=== PATIENT | female | born 1980 | race Caucasian/White ===

== ENCOUNTER 2017-07-22 23:03 | Emergency (ER) ==
[2017-07-22 23:10] VITALS: BP 153/97; TEMP 98.5; BMI 36.8
--- NOTE | 2017-07-22 23:18 | ED.PDOC ---
General ED Provider: Dr. IMELDA BUENO-ER Chief Complaint: Rash Stated Complaint: pardeep got poison alana Time Seen by Physician: 23:15 Mode of Arrival: Walk-In Information Source: Patient Exam Limitations: No limitations [facility] and Triage Documentation Reviewed and Agree: Yes Skin Complaint Exam - Skin Rash/Itching Complaint/Exam Onset/Duration: several hours Symptoms Are: Still present Initial Severity: Mild Current Severity: Moderate Location: neck and arms Potential Exposures: Reports: Plants Aggravating: Reports: None Alleviating: Reports: None Associated Signs and Symptoms: Denies: Difficulty breathing, Fever, Chills Related History: Similar episode Skin Findings: Present: Dry scaly skin Differential Diagnoses: Contact Dermatitis, Poison Alana/Jamul Review of Systems - Review Of Systems Constitutional: Reports: No symptoms Eyes: Reports: No symptoms Ears, Nose, Mouth, Throat: Reports: No symptoms Respiratory: Reports: No symptoms Cardiac: Reports: No symptoms GI: Reports: No symptoms : Reports: No symptoms Musculoskeletal: Reports: No symptoms Skin: Reports: Rash Neurological: Reports: No symptoms Endocrine: Reports: No symptoms Hematologic/Lymphatic: Reports: No symptoms All Other Systems: Reviewed and Negative Past Medical History - Past Medical History Previously Healthy: Yes Endocrine: Reports: None Cardiovascular: Reports: Hypertension Respiratory: Reports: None Hematological: Reports: None Gastrointestinal: Reports: None Genitourinary: Reports: None Neuro/Psych: Reports: None Musculoskeletal: Reports: Back Pain Cancer: Reports: None Last Menstrual Period: 2 weeks ago Other Pertinent Past Medical History: CHRONIC BACK PAIN - Surgical History General Surgical History: Reports: Tubal ligation, (x2), Cholecystectomy, Other ( right groin abscess b) - Family History Family History: Reports: None - Social History Smoking Status: Never smoker Hx Substance Use: No Alcohol Screening: None Lives: With family - Immunizations Tetanus Shot up to Date: Yes Physical Exam - Physical Exam Appearance: Well-appearing, No pain distress, Well-nourished Eyes: BETO, EOMI, Conjunctiva clear ENT: Ears normal, Nose normal, Oropharynx normal Neck: Supple Respiratory: Airway patent, Breath sounds clear, Breath sounds equal, Respirations nonlabored Cardiovascular: RRR, Pulses normal, No rub, No murmur GI/: Soft, Nontender, No masses, Bowel sounds normal, No Organomegaly Musculoskeletal: Normal strength, ROM intact, No edema, No calf tenderness Skin: Warm, Dry, Normal color (noted dry erythematous rash over neck and arms) Neurological: Sensation intact Psychiatric: Affect appropriate, Mood appropriate Critical Care Note - Critical Care Note Total Time (mins): 0 Course - Course Orders, Labs, Meds: Orders Category Date Time Status Dexamethasone 4 mg/ml Inj [Decadron 4 mg/ml Sdv] MEDS 07/22/17 23:14 Discontinued 8 mg IM ONCE STA Diphenhydramine Inj [Benadryl] MEDS 07/22/17 23:14 Discontinued 50 mg IM ONCE STA Medications Discontinued Medications Generic Name Dose Route Start Last Admin Trade Name Freq PRN Reason Stop Dose Admin Dexamethasone Sodium Phosphate 8 mg 07/22/17 23:14 Decadron 4 Mg/Ml Sdv IM 07/22/17 23:15 ONCE STA Diphenhydramine HCl 50 mg 07/22/17 23:14 Benadryl IM 07/22/17 23:15 ONCE STA Vital Signs: Temp Pulse Resp BP Pulse Ox 07/22/17 23:04 98.5 F 98 H 20 153/97 H 96 Departure - Departure Time of Disposition: 23:18 Disposition: HOME SELF-CARE Discharge Problem: Contact dermatitis Qualifiers: Contact dermatitis type: irritant Contact dermatitis trigger: non-food plants Qualified Code(s): L24.7 - Irritant contact dermatitis due to plants, except food Instructions: Contact Dermatitis (ED), Poison Alana (ED) Condition: Good Pt referred to PMD for follow-up: Yes Additional Instructions: prednisone 30mg x 2 days--then 20mgx 2 days then 10mgx 2 days then 5mg x 2 days--lidex ointment apply bid in a thin layer--do not apply to the face Allergies/Adverse Reactions: Allergies Penicillins Adverse Reaction (Verified 07/22/17 23:09) Sulfa (Sulfonamide Antibiotics) Adverse Reaction (Verified 07/22/17 23:09) Home Medications: Ambulatory Orders Hydrocodone/Acetaminophen [Sanford 5-325 Tablet] 1 each PO BID 09/01/16 Disposition Discussed With: Patient
[2017-07-22] MEDS: BENADRYL IM STA (23:24)
[2017-07-22] MEDS: DECADRON 4 MG/ML SDV IM STA (23:25)
== END 2017-07-22 23:35 | disposition home or self-care (01) ==
LOC: ED 23:03
DX: L24.7 Irritant contact dermatitis due to plants, except food (principal)
CPT/HCPCS: 96372; 99282

== ENCOUNTER 2018-11-25 21:56 | Emergency (ER) ==
[2018-11-25 22:09] VITALS: BMI 38.0
--- NOTE | 2018-11-25 22:39 | ED.PDOC ---
General ED Provider: Dr. RADHA LOPEZ Chief Complaint: Fever Stated Complaint: painfull right EAC without auricular cellulitis.Redness and inflammation of canal waals.CXan see unperforated drum.Pain. Time Seen by Physician: 01:19 Mode of Arrival: Walk-In Information Source: Patient Exam Limitations: No limitations Primary Care Provider: KATHYA ROWLEY Referred to ED by: Other Seen Within Last 72 Hours for Same Complaint By: ED Nursing and Triage Documentation Reviewed and Agree: Yes Does patient meet sepsis criteria?: Yes If yes, has appropriate treatment been initiated?: No System Inflammatory Response Syndrome: Not Applicable Sepsis Protocol: For patient's 13 years and over: Temp is 96.8 and below OR 101 and greater Pulse >90 BPM Resp >20/minute Acutely Altered Mental Status Are patient's symptoms suggestive of a new infection, such as: -Pneumonia -Skin, Soft Tissue -Endocarditis -UTI -Bone, Joint Infection -Implantable Device -Acute Abdominal Infection -Wound Infection -Meningitis -Blood Stream Catheter Infection -Unknown EENT Complaint Exam - Ear Complaint/Exam Onset/Duration: today suddenm onmset patient reporting Symptoms Are: Still present Timing: Constant Initial Severity: Severe Current Severity: Moderate Character: Reports: Aching pain Aggravating: Reports: Tugging on ear, Movement Alleviating: Reports: Antipyretics, OTC Meds Associated Signs and Symptoms: Reports: Hearing loss, Pain to external face Ear Surgical History: None Vesicles to External Pinna: No Vesicles to Tragus: No TMJ Tenderness: None Mastoid Tenderness: None Tragal Tenderness: None External Canal: Erythema, Tenderness Tympanic Membrane: Erythema, Dullness Differential Diagnoses: Cellulitis, Otitis Externa, Otitis Media, Serous Otitis , Abrasion Review of Systems - Review Of Systems Constitutional: Reports: Other Eyes: Reports: No symptoms Ears, Nose, Mouth, Throat: Reports: Ear pain Respiratory: Reports: No symptoms Cardiac: Reports: No symptoms GI: Reports: No symptoms : Reports: No symptoms Musculoskeletal: Reports: No symptoms Skin: Reports: No symptoms Neurological: Reports: No symptoms Endocrine: Reports: No symptoms Hematologic/Lymphatic: Reports: No symptoms All Other Systems: Reviewed and Negative Past Medical History - Past Medical History Previously Healthy: Yes Endocrine: Reports: None Cardiovascular: Reports: Hypertension Respiratory: Reports: None Hematological: Reports: None Gastrointestinal: Reports: None Genitourinary: Reports: None Neuro/Psych: Reports: None Musculoskeletal: Reports: Back Pain Cancer: Reports: None Last Menstrual Period: LAST WEEK Other Pertinent Past Medical History: CHRONIC BACK PAIN - Surgical History General Surgical History: Reports: Tubal ligation, (x2), Cholecystectomy, Other ( right groin abscess b) - Family History Family History: Reports: None - Social History Smoking Status: Never smoker Hx Substance Use: No Alcohol Screening: None - Immunizations Tetanus Shot up to Date: Yes Physical Exam - Physical Exam Appearance: Ill-appearing Ill-appearing: Mild Pain Distress: Moderate Eyes: BETO ENT: Nose normal, Oropharynx normal, Erythema Neck: Supple Respiratory: Airway patent Cardiovascular: RRR GI/: Soft Musculoskeletal: Normal strength Neurological: Sensation intact Re-Evaluation - Re-Evaluation Time of Re-Evaluation: 00:19 Status: Improved Vital Signs Stable: Yes Pain Level: diminished Appearance: NAD Lungs: Other Skin: Warm and Dry Neuro: Alert and Oriented X3 CV: RRR Critical Care Note - Critical Care Note Total Time (mins): 0 Course - Course Hematology/Chemistry: 11/25/18 22:56 Orders, Labs, Meds: Orders Category Date Time Status EKG-(ED ONLY) Stat CARDIO 11/25/18 22:20 Ordered Vital Signs: Temp Pulse Resp BP Pulse Ox 11/25/18 21:58 98.9 F 103 H 20 136/52 L 95 Departure - Departure Time of Disposition: 01:01 Disposition: HOME SELF-CARE Discharge Problem: Otitis media Instructions: Iron Deficiency Anemia (ED) Condition: Good Pt referred to PMD for follow-up: Yes IPMP verified?: No Additional Instructions: Take Azithromycin 500 mg PO daily x 7 days.This is to cover for otitis media especially that you are allergic tyo penicillins and poss sulfa.Follow with PCP if not better within 72 hhours and seek ENT doctor revaluation,Take a flu vaccine if you did not so far,For anemia start iron tablets as prescribed,Use sparingly uour pain killer meds foe breakthrough earache only and remember 72 hours reeval if not better. Allergies/Adverse Reactions: Allergies Penicillins Adverse Reaction (Verified 11/25/18 22:08) Sulfa (Sulfonamide Antibiotics) Adverse Reaction (Verified 11/25/18 22:08) Home Medications: Ambulatory Orders Lisinopril [Zestril] 10 mg PO DAILY 11/25/18 Disposition Discussed With: Patient, Family
[2018-11-25] MEDS ORDERED: SODIUM CHLORIDE 1,000 ML IV STA (22:46)
[2018-11-25] MEDS ORDERED: MORPHINE 4 MG/ML SYRINGE IVP STA ×2 (22:47→23:45)
[2018-11-25] MEDS ORDERED: ROCEPHIN 1 GM in SODIUM CHLORIDE 50 ML IV STA (22:50)
[2018-11-25] MEDS ORDERED: FLOXIN 0.3% OTIC SOL OT STA (22:58)
[2018-11-25] MEDS ORDERED: ROCEPHIN ONE (23:01)
[2018-11-25] MEDS ORDERED: CIPRODEX OTIC SUSPENSION OT ONE (23:27)
[2018-11-25] MEDS ORDERED: CIPRODEX OTIC SUSPENSION OT SCH (23:30)
[2018-11-25] MEDS ORDERED: MORPHINE 2 MG/ML SYRINGE IVP STA (23:46)
[2018-11-25] MEDS ORDERED: ZITHROMAX PO STA (23:46)
[2018-11-26] MEDS ORDERED: ALBUTEROL 0.083% NEB NEB STA (00:17)
--- NOTE | 2018-11-26 00:38 | DI ---
EXAM: Two-view chest HISTORY: Cough fever COMPARISON: Two-view chest 09/15/2016 FINDINGS: The cardiomediastinal silhouette is stable. There is an azygos lobe. There is no evidenc e of infiltrate or effusion. No osseous abnormalities are identified. IMPRESSION: No evidence of active pulmonary disease or interval change
[2018-11-26 01:43] VITALS: BP 130/82; TEMP 98.6
== END 2018-11-26 01:37 | disposition home or self-care (01) ==
LOC: ED 21:56
DX: H66.90 Otitis media, unspecified, unspecified ear (principal); D64.9 Anemia, unspecified; I10 Essential (primary) hypertension
CPT/HCPCS: 36415; 85008; 85025; 93005; 93010; 94640; 96361; 96365; 96375; 99284

== ENCOUNTER 2018-12-02 21:57 | Emergency (ER) ==
[2018-12-02 22:04] VITALS: TEMP 99.2; BMI 39.8
[2018-12-02] MEDS ORDERED: LEVAQUIN PO STA (22:14)
[2018-12-02] MEDS ORDERED: DECADRON 4 MG/ML SDV IM STA (22:15)
[2018-12-02] MEDS ORDERED: TORADOL IM STA (22:15)
--- NOTE | 2018-12-02 22:51 | CT ---
EXAM: CT head without contrast. HISTORY: Headache. PROCEDURE: Contiguous axial CT images of the head without contrast with coronal and sagittal reforma ts. FINDINGS: The ventricles and basal cisterns are normal in size and configuration. No evidence of m ass or midline shift. No intracranial hemorrhage or evidence of large vessel infarct. No extra-axia l fluid collection. There is minimal mucosal thickening in the sphenoid sinus. There is opacificati on of the right mastoid air cells. The left mastoid air cells are normal in appearance. Impression: Negative CT of the head. Paranasal sinusitis and right mastoiditis.
--- NOTE | 2018-12-02 22:56 | CT ---
EXAM: CT scan sinuses HISTORY: Headache COMPARISON: CT scan sinuses 12/03/2014 FINDINGS: Contiguous axial images obtained through the sinuses without contrast utilizing 3-mm colli mation. Sagittal and coronal reconstructions were imaged and reviewed.. Minimal mucoperiosteal thick ening is seen with bilateral maxillary left frontal sinuses. Ethmoid sinuses are clear. Minimal muc operiosteal thickening seen in the bilateral sphenoid sinuses. The ostiomeatal complexes are patent. There is partial right mastoid effusion. Extensive . Periodontal disease is seen in the bilateral maxilla. IMPRESSION: Chronic-appearing sinusitis as described. Right mastoid effusion.
--- NOTE | 2018-12-02 23:30 | ED.PDOC ---
General ED Provider: Dr. IMELDA BUENO-ER Chief Complaint: Earache Stated Complaint: pardeep got sinus Time Seen by Physician: 21:55 Mode of Arrival: Walk-In Information Source: Patient Exam Limitations: Physical impairment Primary Care Provider: KATHYA ROWLEY Nursing and Triage Documentation Reviewed and Agree: Yes Does patient meet sepsis criteria?: No System Inflammatory Response Syndrome: Not Applicable Sepsis Protocol: For patient's 13 years and over: Temp is 96.8 and below OR 101 and greater Pulse >90 BPM Resp >20/minute Acutely Altered Mental Status Are patient's symptoms suggestive of a new infection, such as: -Pneumonia -Skin, Soft Tissue -Endocarditis -UTI -Bone, Joint Infection -Implantable Device -Acute Abdominal Infection -Wound Infection -Meningitis -Blood Stream Catheter Infection -Unknown EENT Complaint Exam - Ear Complaint/Exam Onset/Duration: several days Symptoms Are: Still present Timing: Constant Initial Severity: Mild Current Severity: Mild Character: Reports: Dull pain, Aching pain Aggravating: Reports: None Alleviating: Reports: None Associated Signs and Symptoms: Reports: URI symptoms Related History: Reports: Similar Episode Vesicles to External Pinna: No Vesicles to Tragus: No Tympanic Membrane: Erythema, Bulging, Dullness Differential Diagnoses: Otitis Media, URI Review of Systems - Review Of Systems Constitutional: Reports: No symptoms Eyes: Reports: No symptoms Ears, Nose, Mouth, Throat: Reports: Ear pain Respiratory: Reports: No symptoms Cardiac: Reports: No symptoms GI: Reports: No symptoms : Reports: No symptoms Musculoskeletal: Reports: No symptoms Skin: Reports: No symptoms Neurological: Reports: Headache Endocrine: Reports: No symptoms Hematologic/Lymphatic: Reports: No symptoms All Other Systems: Reviewed and Negative Past Medical History - Past Medical History Previously Healthy: Yes Endocrine: Reports: None Cardiovascular: Reports: Hypertension Respiratory: Reports: None Hematological: Reports: None Gastrointestinal: Reports: None Genitourinary: Reports: None Neuro/Psych: Reports: None Musculoskeletal: Reports: Back Pain Cancer: Reports: None Last Menstrual Period: 1.5 weeks ago Other Pertinent Past Medical History: CHRONIC BACK PAIN - Surgical History General Surgical History: Reports: Tubal ligation, (x2), Cholecystectomy, Other ( right groin abscess b) - Family History Family History: Reports: None - Social History Smoking Status: Never smoker Hx Substance Use: No Alcohol Screening: None - Immunizations Tetanus Shot up to Date: Yes Physical Exam - Physical Exam Appearance: Well-appearing, No pain distress, Well-nourished Pain Distress: Mild Eyes: BETO, EOMI, Conjunctiva clear ENT: Rhinorrhea Neck: Supple Respiratory: Airway patent Cardiovascular: RRR GI/: Soft, Nontender, No masses, Bowel sounds normal, No Organomegaly Musculoskeletal: Normal strength, ROM intact, No edema, No calf tenderness Skin: Warm, Dry, Normal color Neurological: Sensation intact, Motor intact, Reflexes intact, Cranial nerves intact, Alert, Oriented Psychiatric: Affect appropriate, Mood appropriate Interpretation - Radiology Interpretation Radiology Interpretation By: Radiologist Radiology Results: Positive Exam Interpreted: CT Scan Critical Care Note - Critical Care Note Total Time (mins): 0 Course - Course Orders, Labs, Meds: Orders Category Date Time Status Dexamethasone 4 mg/ml Inj [Decadron 4 mg/ml Sdv] MEDS 12/02/18 22:15 Discontinued 8 mg IM ONCE STA Ketorolac Tromethamine [Toradol] MEDS 12/02/18 22:15 Discontinued 60 mg IM ONCE STA Levofloxacin [Levaquin] MEDS 12/02/18 22:14 Discontinued 750 mg PO ONCE STA CT HEAD W/O CONTRAST Stat RADS 12/02/18 22:[address] SINUSES W/O CONTRAST Stat RADS 12/02/18 22:15 Completed Medications Discontinued Medications Generic Name Dose Route Start Last Admin Trade Name Freq PRN Reason Stop Dose Admin Dexamethasone Sodium Phosphate 8 mg 12/02/18 22:15 12/02/18 22:32 Decadron 4 Mg/Ml Sdv IM 12/02/18 22:16 8 mg ONCE STA Administration Ketorolac Tromethamine 60 mg 12/02/18 22:15 12/02/18 22:32 Toradol IM 12/02/18 22:16 60 mg ONCE STA Administration Levofloxacin 750 mg 12/02/18 22:14 12/02/18 22:31 Levaquin PO 12/02/18 22:15 750 mg ONCE STA Administration Vital Signs: Temp Pulse Resp BP Pulse Ox 12/02/18 21:58 99.2 F 104 H 20 155/96 H 98 Departure - Departure Time of Disposition: 23:30 Disposition: HOME SELF-CARE Discharge Problem: Sinusitis Qualifiers: Sinusitis location: unspecified location Chronicity: acute Recurrence: non- recurrent Qualified Code(s): J01.90 - Acute sinusitis, unspecified Instructions: Rhinosinusitis (ED) Condition: Good Pt referred to PMD for follow-up: Yes IPMP verified?: No Additional Instructions: levaquin 500mg #10--f/u with pcp Allergies/Adverse Reactions: Allergies Penicillins Adverse Reaction (Verified 12/02/18 22:04) Sulfa (Sulfonamide Antibiotics) Adverse Reaction (Verified 12/02/18 22:04) Difficulty Breathing Home Medications: Ambulatory Orders Lisinopril [Zestril] 10 mg PO DAILY 11/25/18 Disposition Discussed With: Patient
[2018-12-02 23:41] VITALS: BP 160/84
== END 2018-12-02 23:37 | disposition home or self-care (01) ==
LOC: ED 21:57
DX: J01.90 Acute sinusitis, unspecified (principal)
CPT/HCPCS: 96372; 99283

== ENCOUNTER 2019-02-22 16:13 | Emergency (ER) ==
[2019-02-22 16:24] VITALS: TEMP 98.6; BMI 41.5
--- NOTE | 2019-02-22 17:04 | ED.PDOC ---
General ED Provider: Dr. IMELDA DIEZ Chief Complaint: Respiratory Complaint Stated Complaint: Sore throat and Rt Sided ear ache Time Seen by Physician: 16:55 Mode of Arrival: Walk-In Information Source: Patient Exam Limitations: No limitations Primary Care Provider: KATHYA ROWLEY Nursing and Triage Documentation Reviewed and Agree: Yes Does patient meet sepsis criteria?: No If yes, has appropriate treatment been initiated?: No System Inflammatory Response Syndrome: Not Applicable Sepsis Protocol: For patient's 13 years and over: Temp is 96.8 and below OR 101 and greater Pulse >90 BPM Resp >20/minute Acutely Altered Mental Status Are patient's symptoms suggestive of a new infection, such as: -Pneumonia -Skin, Soft Tissue -Endocarditis -UTI -Bone, Joint Infection -Implantable Device -Acute Abdominal Infection -Wound Infection -Meningitis -Blood Stream Catheter Infection -Unknown Review of Systems - Review Of Systems Constitutional: Reports: Chills, Fever, Malaise, Weakness Eyes: Reports: No symptoms Ears, Nose, Mouth, Throat: Reports: Throat pain Respiratory: Reports: No symptoms Cardiac: Reports: No symptoms GI: Reports: No symptoms : Reports: No symptoms Musculoskeletal: Reports: No symptoms Skin: Reports: No symptoms Neurological: Reports: No symptoms Endocrine: Reports: No symptoms Hematologic/Lymphatic: Reports: No symptoms All Other Systems: Reviewed and Negative Past Medical History - Past Medical History Previously Healthy: Yes Endocrine: Reports: None Cardiovascular: Reports: Hypertension Respiratory: Reports: None Hematological: Reports: None Gastrointestinal: Reports: None Genitourinary: Reports: None Neuro/Psych: Reports: None Musculoskeletal: Reports: Back Pain Cancer: Reports: None Last Menstrual Period: last week Other Pertinent Past Medical History: CHRONIC BACK PAIN - Surgical History General Surgical History: Reports: Tubal ligation, (x2), Cholecystectomy, Other ( right groin abscess b) - Family History Family History: Reports: None - Social History Smoking Status: Never smoker Hx Substance Use: No Alcohol Screening: None Physical Exam - Physical Exam Appearance: Ill-appearing, Obese Ill-appearing: Moderate Pain Distress: Mild Eyes: BETO, EOMI, Conjunctiva clear ENT: Erythema, Exudate (rt tonsillar region ) Neck: Supple Respiratory: Airway patent, Breath sounds clear, Breath sounds equal, Respirations nonlabored Cardiovascular: RRR, Pulses normal, No rub, No murmur GI/: Soft, Nontender, No masses, Bowel sounds normal, No Organomegaly Musculoskeletal: Normal strength, ROM intact, No edema, No calf tenderness Skin: Warm, Dry, Normal color Neurological: Sensation intact, Motor intact, Reflexes intact, Cranial nerves intact, Alert, Oriented Psychiatric: Affect appropriate, Mood appropriate Critical Care Note - Critical Care Note Total Time (mins): 30 Course - Course Orders, Labs, Meds: Lab Review 02/22/19 17:09 Influ A Molecular Assay Negative by naat Influ B Molecular Assay Negative by naat Orders Category Date Time Status FLU A & B MOLECULAR [FLU A/B MOLECULAR] Stat LAB 02/22/19 17:09 Completed RAPID STREP SCREEN [MOLECULAR GROUP A STREP] Stat LAB 02/22/19 17:09 Completed Lisinopril [Zestril] MEDS 02/22/19 17:08 Discontinued 10 mg PO ONCE STA Medications Discontinued Medications Generic Name Dose Route Start Last Admin Trade Name Gaelq PRN Reason Stop Dose Admin Lisinopril 10 mg 02/22/19 17:08 02/22/19 17:16 Zestril PO 02/22/19 17:09 10 mg ONCE STA Administration Vital Signs: Temp Pulse Resp BP Pulse Ox 02/22/19 18:20 140/90 02/22/19 18:11 148/81 H 02/22/19 17:30 150/89 H 02/22/19 17:20 169/97 H 02/22/19 16:20 98.6 F 112 H 20 161/113 H 97 Departure - Departure Time of Disposition: 18:20 Disposition: HOME SELF-CARE Discharge Problem: Strep tonsillitis Instructions: Strep Throat (ED) Condition: Good Pt referred to PMD for follow-up: Yes (1wk) IPMP verified?: No Additional Instructions: Force fluids Take antibiotics Tylenol or advil as needed for temperature Prescriptions: Azithromycin [Zithromax] 250 mg PO DAILY #6 tablet Allergies/Adverse Reactions: Allergies Penicillins Adverse Reaction (Verified 02/22/19 16:24) Sulfa (Sulfonamide Antibiotics) Adverse Reaction (Verified 02/22/19 16:24) Difficulty Breathing Home Medications: Ambulatory Orders Lisinopril [Zestril] 10 mg PO DAILY 11/25/18 Azithromycin [Zithromax] 250 mg PO DAILY #6 tablet 02/22/19 Disposition Discussed With: Patient
[2019-02-22] MEDS ORDERED: ZESTRIL PO STA (17:08)
[2019-02-22 18:36] VITALS: BP 142/91
== END 2019-02-22 18:43 | disposition home or self-care (01) ==
LOC: ED 16:13
DX: J02.9 Acute pharyngitis, unspecified (principal); H92.01 Otalgia, right ear; R50.9 Fever, unspecified; R53.1 Weakness; R07.0 Pain in throat; J03.00 Acute streptococcal tonsillitis, unspecified
CPT/HCPCS: 87502; 87651; 99283

== ENCOUNTER 2019-02-23 15:45 | Outpatient (CLI) ==
[2019-02-22 16:24] VITALS: BMI 41.5
== END 2019-02-23 15:46 | disposition home or self-care (01) ==
LOC: RHC-LAB 15:45
PROVIDERS: ATTEND Nurse Practitioner Family
DX: D50.9 Iron deficiency anemia, unspecified (principal); I10 Essential (primary) hypertension
CPT/HCPCS: 36415; 80053; 80061; 82607; 82728; 82746; 83540; 83550; 84443; 84466; 85008; 85025; 85045

== ENCOUNTER 2019-11-12 04:46 | Observation (INO) ==
[2019-11-12] MEDS ORDERED: SODIUM CHLORIDE 1,000 ML IV STA (05:29)
[2019-11-12] MEDS ORDERED: LEVAQUIN 750 MG/150 ML D5W 750 MG/150 ML BAG IV STA (05:29)
[2019-11-12 05:48] LABS: HEMATOCRIT 28.9 % (37.0-47.0)
[2019-11-12] MEDS ORDERED: TORADOL IVP STA (05:57)
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
--- NOTE | 2019-11-12 06:43 | CT ---
EXAM: CT chest without intravenous contrast 11/12/2019. Sagittal and coronal reformatted images obt ained HISTORY: Dyspnea and tachycardia COMPARISON: 07/03/2019 FINDINGS: The heart size appears within normal limits. There is no pericardial effusion There is no pulmonary consolidation. No pleural effusion or pneumothorax. Reticulonodular infiltrate is present within the lingula. There is associated bronchial wall thicken ing. This likely represents infectious/inflammatory pneumonitis process. This can be seen on axial series image 32. Limited views of the upper abdomen shows surgical changes of cholecystectomy. No acute process. IMPRESSION: Reticulonodular infiltrate within the lingula suggestive of infectious/inflammatory pneu monitis. The lungs are otherwise well aerated. No pulmonary consolidation, effusion or pneumothorax .
[2019-11-12] MEDS ORDERED: NORCO 7.5-325 PO PRN (06:49)
[2019-11-12] MEDS ORDERED: CATAPRES PO SCH (09:00)
[2019-11-12] MEDS ORDERED: ZESTRIL PO SCH (09:00)
[2019-11-12] MEDS ORDERED: CHLORASEPTIC SPRAY MM PRN (09:39)
[2019-11-12] MEDS ORDERED: MUCINEX DM ER 600-30 MG TABLET PO SCH (10:00)
[2019-11-12] MEDS ORDERED: SODIUM CHLORIDE 500 ML IV SCH (10:00)
[2019-11-12] MEDS ORDERED: IMITREX SUBCUT STA ×2 (10:02→12:23)
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
[2019-11-12] MEDS: XOPENEX 1.25 MG NEB SCH ×3 (11:07→23:05)
[2019-11-12] MEDS ORDERED: TRANDATE IVP STA (11:15)
[2019-11-12] MEDS ORDERED: SODIUM CHLORIDE 1,000 ML IV SCH (11:30)
[2019-11-12] MEDS ORDERED: TRANDATE IVP PRN ×2 (12:39→13:00)
[2019-11-12] MEDS: LOVENOX SUBCUT SCH (12:57)
[2019-11-12] MEDS: PHENERGAN WITH CODEINE 6.25/10 MG/5 ML PO PRN ×2 (17:25→23:59)
[2019-11-12] MEDS: TORADOL IVP PRN (17:26)
[2019-11-12] MEDS: SODIUM CHLORIDE 1,000 ML IV SCH ×2 (19:39→22:42)
[2019-11-12] MEDS: MUCINEX PO SCH (20:29)
[2019-11-12] MEDS: TYLENOL PO PRN (20:32)
[2019-11-13] MEDS: TORADOL IVP PRN ×3 (00:10→18:23)
[2019-11-13] MEDS: XOPENEX 1.25 MG NEB SCH ×4 (04:40→23:15)
[2019-11-13 05:20] LABS: HEMATOCRIT 27.2 % (37.0-47.0)
[2019-11-13] MEDS: PHENERGAN WITH CODEINE 6.25/10 MG/5 ML PO PRN ×4 (05:28→22:44)
[2019-11-13] MEDS: SODIUM CHLORIDE 1,000 ML IV SCH ×2 (05:29→16:44)
[2019-11-13] MEDS ORDERED: FLUZONE HIGH-DOSE 2019-20 SYR IM ONE (09:00)
[2019-11-13] MEDS ORDERED: PNEUMOVAX 23 IM ONE (09:00)
[2019-11-13] MEDS ORDERED: LEVAQUIN 750 MG/150 ML D5W 750 MG/150 ML BAG IV SCH (09:00)
[2019-11-13] MEDS ORDERED: FLUZONE QUAD 2019-2020 SYRINGE IM ONE (09:00)
[2019-11-13] MEDS: MUCINEX PO SCH ×2 (09:28→20:43)
[2019-11-13] MEDS: TYLENOL PO PRN (09:28)
[2019-11-13] MEDS: ZESTRIL PO SCH ×2 (09:28→09:36)
[2019-11-13] MEDS: LEVAQUIN 750 MG/150 ML D5W 750 MG/150 ML BAG IV SCH (09:28)
[2019-11-13] MEDS: LOVENOX SUBCUT SCH (09:29)
--- NOTE | 2019-11-13 11:14 | PCM.PROG ---
Date Seen by Provider: 11/13/19 Time Seen by Provider: 08:07 Subjective: pt left laterally recumbent in bed. just prior to my entering room nurse reported that patient states she feels she has fever and request some water. Temp taken prior to water and is 97.9 orally. pt is ill appearing but not toxic appearing. states she continues to have body aches. says she has been intermittently hot then cold and feels she is "shaking" off and on. denies chest pain or feeling short of breath today. no nausea or vomiting. still with some cough. remains on room air. Objective: Vitals: T=97.9 F, P=106, R=20, IX=233/81, SPO2=97 HEENT: [PERRLA, EOMs intact, no conjunctival injection, anicteric; no noted rhinorrhea and none reporte; moist mucous membranes] Neck: [supple no adenopathy] Lungs: [CTA no wheezes or crackles noted] CVS: [RRR, slightly tachycardic Abdomen: [very large protuberant, soft, non tender, bowel sounds present] Extremities: [MAEW, normal strenghty symmetrically] Neurological: [alert oriented x 4; sensation and proprioception wnl] Skin: [warm and dry; no rash] Lab/Tests/Diagnostic Imaging: [] (1) Malignant hypertension: Status: Acute Code(s): I10 - Essential (primary) hypertension SNOMED Code(s): 71047793 (2) Headache: Status: Acute Code(s): R51 - Headache SNOMED Code(s): 50098879 (3) Strep pharyngitis: Status: Acute Code(s): J02.0 - Streptococcal pharyngitis SNOMED Code(s): 68105823 (4) Community acquired pneumonia: Status: Acute Code(s): J18.9 - Pneumonia, unspecified organism SNOMED Code(s): 839569133 (5) Chronic anemia: Status: Acute Code(s): D64.9 - Anemia, unspecified SNOMED Code(s): 157565739 (6) Morbid obesity due to excess calories: Status: Acute Code(s): E66.01 - Morbid (severe) obesity due to excess calories SNOMED Code(s): 086585646 Plan: Plan: HTN - BP remains elevated. clonidine was stopped. lisinopril will be increased to 40mg daily today 11/13; monitor and add other meds as needed. cont labetelol PRN with parameters; adjust as needed. Migraine FUENTES by history, received imitrex x 2 doses on 11/12. headache significantly improved but not totally resolved per pt. feels pain is tolerable with current regimen. will cont add/adjust as needed. per pt has never been on any prescribed medications for headache. states has come to ED and received morphine and zofran in the past. pt will f/u with pcp to discuss further and decide on appropriate medication to have at home for migraine flares other than OTC excedrine migraine. strep pharyngitis, cont levofloxacin and supportive care with throat lozenges, mucinex, phenergan w/codiene; norco stopped CAP - cont levofloxacin and IV fluids; albuterol nebs; sat remain wnl on room; monitor and provide oxygen if needed chronic microcytic hypochromic anemia, anemia studies reveal chronic microcystic hypochromic anemia with decreased iron stores. pt might benefit from supplementation but states ferrous sulfate causes NV; advised to try flintstones, less total iron delivery but might not cause NV or constipation. pt will continue iron transfusion as needed. will transfuse for hgb <7 diabetes type 2, new diagnosis, A1c 7.17 on 11/12; advised pt of new diagnosis she is not surprised states she has family members with diabetes adult onset. explained not inherited but related to excess calories, weight, etc. discussed lifestyle change once she is recovered from current episode. will not start po diabetic med. will start accucheks and give sliding scale insulin if needed. pt will f/u with pcp after discharge and discuss further lifestyle change actions and start po medication at that time. morbid obesity, continue regular diet with no concentrated sugar; discussed life style change to include more aerobic exercise such as walking, reducing portion size, reducing carb load GI PPx: ranitidine DVT PPx: lovenox CODE: full
[2019-11-13] MEDS ORDERED: HUMULIN R SUBCUT PRN (11:29)
[2019-11-13] MEDS: HUMULIN R SUBCUT PRN (20:44)
[2019-11-14] MEDS: SODIUM CHLORIDE 1,000 ML IV SCH ×4 (01:07→11:26)
[2019-11-14] MEDS: PHENERGAN WITH CODEINE 6.25/10 MG/5 ML PO PRN (03:48)
[2019-11-14] MEDS: XOPENEX 1.25 MG NEB SCH (04:50)
[2019-11-14 04:52] LABS: HEMATOCRIT 28.2 % (37.0-47.0)
[2019-11-14] MEDS: HUMULIN R SUBCUT PRN (05:33)
[2019-11-14] MEDS: TYLENOL PO PRN (07:45)
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
[2019-11-14] MEDS ORDERED: HUMULIN R SUBCUT PRN (08:17)
[2019-11-14] MEDS ORDERED: NORCO 7.5-325 PO ONE (09:00)
[2019-11-14] MEDS ORDERED: ZESTRIL PO SCH ×2 (09:00)
[2019-11-14] MEDS ORDERED: HYDROCHLOROTHIAZIDE PO SCH (09:00)
[2019-11-14] MEDS: LOVENOX SUBCUT SCH (09:03)
[2019-11-14] MEDS: LEVAQUIN 750 MG/150 ML D5W 750 MG/150 ML BAG IV SCH (09:09)
[2019-11-14] MEDS ORDERED: ZITHROMAX PO ONE (09:20)
[2019-11-14] MEDS ORDERED: ROBITUSSIN AC SYRUP PO PRN (09:55)
[2019-11-14] MEDS ORDERED: XOPENEX 1.25 MG NEB SCH (10:00)
[2019-11-14] MEDS: ATROVENT 0.02% NEB NEB SCH ×2 (10:02→11:37)
[2019-11-14] MEDS: ALBUTEROL 0.083% NEB NEB SCH ×2 (10:03→14:04)
[2019-11-14 13:27] VITALS: BP 150/90; TEMP 97.7
== END 2019-11-14 14:45 | disposition home or self-care (01) ==
LOC: ED 04:52 → INTOOBSV 07:41 → MEDSURG B 07:41
PROVIDERS: ADMIT Nurse Practitioner Family; ATTEND Nurse Practitioner Family
DX: R51 Headache; E66.01 Morbid (severe) obesity due to excess calories; D50.9 Iron deficiency anemia, unspecified; J18.9 Pneumonia, unspecified organism; Z79.899 Other long term (current) drug therapy; G89.29 Other chronic pain; R06.02 Shortness of breath; M54.5 Low back pain; F19.10 Other psychoactive substance abuse, uncomplicated; E11.9 Type 2 diabetes mellitus without complications; J02.0 Streptococcal pharyngitis

== ENCOUNTER 2023-07-10 18:18 | Observation (INO) ==
[2023-07-10] MEDS ORDERED: HYDROCHLOROTHIAZIDE PO ONE (18:50)
[2023-07-10] MEDS ORDERED: ZESTRIL PO ONE (18:50)
[2023-07-10 19:12] LABS: BASOPHILS # (AUTO) 0.1 K/uL (0-0.2); BASOPHILS % (AUTO) 0.6 % (0.0-3.0); EOSINOPHILS # (AUTO) 0.1 K/ul (0.0-0.7); EOSINOPHILS % (AUTO) 1.3 % (0.0-7.0); HEMATOCRIT 30.5 % (37.0-47.0); IMMATURE GRANULOCYTE % (AUTO) 0.3 % (0.0-5.0); LYMPHOCYTES # (AUTO) 3.1 K/uL (0.60-3.4); LYMPHOCYTES % (AUTO) 30.1 (10.0-50.0); MEAN CORPUSCULAR HEMOGLOBIN 16.9 pg (27.0-31.0); MEAN CORPUSCULAR HGB CONC 26.2 (31.8-35.4); MEAN CORPUSCULAR VOLUME 64.5 fl (81.0-99.0); MONOCYTES # (AUTO) 0.6 K/uL (0.4-2.0); MONOCYTES % (AUTO) 6.3 (0-10); NEUTROPHILS # (AUTO) 6.3 K/ul (2.0-6.9); NEUTROPHILS % (AUTO) 61.4 % (42.2-75.2); PLATELET COUNT 293 10^3/uL (140-440); RED BLOOD COUNT 4.73 10^6/ul (4.20-5.40); WHITE BLOOD COUNT 10.24 K/ul (4.6-10.2)
[2023-07-10 19:23] LABS: ALANINE AMINOTRANSFERASE 20.5 U/L (0-35); ALBUMIN 4.49 g/dL (3.5-5.0); ALKALINE PHOSPHATASE 83.2 U/L (38-126); ASPARTATE AMINO TRANSFERASE 22.3 U/L (14-36); BILIRUBIN,TOTAL 0.31 mg/dL (0.2-1.3); BLOOD UREA NITROGEN 13.3 mg/dL (7-17); CALCIUM 9.89 mg/dL (8.4-10.2); CARBON DIOXIDE 27.8 mmol/L (22-30.0); CHLORIDE 99.7 mmol/L (98-107); CREATININE 0.71 mg/dL (0.60-1.30); GLUCOSE 119.8 mg/dL (74-106); SODIUM 135.9 mmol/L (134.5-145); TOTAL PROTEIN 8.09 g/dL (6.3-8.2)
--- NOTE | 2023-07-10 19:29 | DI ---
EXAM: CHEST RADIOGRAPH TECHNIQUE: Two views. Frontal and lateral. HISTORY: Cough. COMPARISON: 08/24/2022. FINDINGS: The lungs are clear. Azygos fissure, a normal variant. The heart is enlarged. There is no pleural effusion. There is no pneumothorax. IMPRESSION: 1. Azygos fissure, a normal variant. 2. Cardiomegaly. 3. Otherwise unremarkable chest radiographs.
[2023-07-10 19:32] LABS: HYPOCHROMASIA 1+ (NOT PRESENT)
[2023-07-10 19:33] LABS: ANISOCYTOSIS OCCASIONAL (NOT PRESENT); STOMATOCYTES OCCASIONAL (NOT PRESENT)
[2023-07-10 19:35] LABS: TROPONIN I < 0.012 ng/ml (0.0000-0.120)
--- NOTE | 2023-07-10 19:47 | ED.PDOC ---
General ED Provider: Dr. 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 She deneis falls or injuries She denies drug or alcohol use PMH: HTN on HCTZ and lisinoprl Patient denies chest pain, sob, or chest pressure No hemoptysis Patient stable Time Seen by Provider: 07/10/23 18:20 Information Source: Patient Primary Care Provider: ASTRDI LOPEZ APRN Nursing and Triage Documentation Reviewed and Agree: Yes Review of Systems Review Of Systems Constitutional: Reports Weakness; Denies Chills Eyes: Denies Foreign body sensation or Inflammation Ears, Nose, Mouth, Throat: Denies Ear pain or Ear discharge Respiratory: Denies Cough or Wheezing Cardiac: Denies Chest pain, Palpitations or Syncope GI: Denies Abdominal pain, Constipated or Diarrhea : Denies Hematuria or Incontinence Musculoskeletal: Denies Muscle stiffness or Neck pain Skin: Denies Bruising or Change in color Neurological: Denies Anxiety or Depressed Endocrine: Denies Excessive sweating or Flushing Hematologic/Lymphatic: Reports No symptoms All Other Systems: Reviewed and Negative [facility] Medical History (~2009) Family History FATHER Hypertension Social History Smoking and tobacco status: Never smoker Surgical History Female Reproductive History Menstrual Hx Hysterectomy: No Hx Tubal Ligation: No Physical Exam Physical Exam Appearance: Reports Well-appearing, Well-nourished and Obese Ill-appearing: Not Applicable Pain Distress: Not Applicable Eyes: Reports BETO and EOMI ENT: Reports Ears normal and Nose normal Neck: Supple Respiratory: Reports Airway patent and Breath sounds clear; Denies Wheezes Cardiovascular: Reports RRR and Pulses normal GI/: Reports Soft and Nontender Musculoskeletal: Reports Normal strength and ROM intact Skin: Reports Warm and Dry Neurological: Reports Sensation intact and Motor intact Psychiatric: Reports Affect appropriate and Mood appropriate Interpretation EKG Interpretation EKG Interpretation By: ED Physician Time of EKG #1: 18:59 Rate: Normal Interpretation: NSR rate 92 no stemi qt wnl Radiology Interpretation Radiology Interpretation By: ED Physician Exam Interpreted: CXR Xray Comments: No gross rib fractures or pneumothoraces Critical Care Note Critical Care Note Total Critical Care Time (mins): 0 Course Course 07/10/23 19:02 07/10/23 19:02 Orders, Labs, Meds: Lab Review 07/10/23 07/10/23 19:02 19:07 WBC 10.24 H RBC 4.73 Hgb 8.0 L Hct 30.5 L MCV 64.5 L MCH 16.9 L MCHC 26.2 L RDW Coeff of Kathrine 19.0 H Plt Count 293 Immature Gran % (Auto) 0.3 Neut % (Auto) 61.4 Lymph % (Auto) 30.1 [place] % (Auto) 6.3 Eos % (Auto) 1.3 Baso % (Auto) 0.6 Neut # (Auto) 6.3 Lymph # (Auto) 3.1 [place] # (Auto) 0.6 Eos # (Auto) 0.1 Baso # (Auto) 0.1 Immature Gran # (Auto) 0.0 Hypochromasia 1+ Anisocytosis Occasional Stomatocytes Occasional Sodium 135.9 Potassium 3.80 Chloride 99.7 Carbon Dioxide 27.8 Anion Gap 12.20 BUN 13.3 Creatinine 0.71 Estimated GFR (MDRD) 90.00 BUN/Creatinine Ratio 18.73 Glucose 119.8 H Calcium 9.89 Total Bilirubin 0.31 AST 22.3 ALT 20.5 Alkaline Phosphatase 83.2 Troponin I < 0.012 Total Protein 8.09 Albumin 4.49 Globulin 3.60 Albumin/Globulin Ratio 1.24 TSH 1.810 Free T4 1.24 Orders Category Date Time Status OBSERVATION [PLACE PATIENT OBSERVATION] .TO MEDSURG ADMISSION 07/10/23 20:52 Active (MONITORED BED) EKG-(ED ONLY) Stat CARDIO 07/10/23 18:50 Ordered TELEMETRY MONITORING TELE CARE 07/10/23 20:52 Active CBC W/ AUTO DIFF Stat LAB 07/10/23 19:02 Completed COMPREHENSIVE METABOLIC PANEL Stat LAB 07/10/23 19:02 Completed COVID [SARS COV-2 RNA RAPID STEVEN] Stat LAB 07/10/23 Ordered DRUG SCREEN (RAPID FOR ED) [DRUG SCREEN, URINE, RAPID] LAB 07/10/23 20:20 Received Stat FREE T4 (FREE THYROXINE) Stat LAB 07/10/23 19:07 Completed RBC MORPHOLOGY Stat LAB 07/10/23 19:02 Completed TROPONIN I Stat LAB 07/10/23 19:02 Completed TSH [THYROID STIMULATING HORMONE] Stat LAB 07/10/23 19:07 Completed Acetaminophen Meds 07/10/23 20:48 Active 1,000 mg in 100 ml IV ONCE Hydralazine HCl Meds 07/10/23 20:47 Discontinued 10 mg IVP ONCE ONE Hydrochlorothiazide Meds 07/10/23 18:50 Discontinued 25 mg PO ONCE ONE Labetalol HCl [Trandate] Meds 07/10/23 19:48 Discontinued 20 mg IVP ONCE ONE Lisinopril [Zestril] Meds 07/10/23 18:50 Discontinued 20 mg PO ONCE ONE CT HEAD W/O CONTRAST Stat RADS 07/10/23 19:48 Completed CXR [CHEST, 2 VIEWS PA & LAT] Stat RADS 07/10/23 18:51 Completed Medications Generic Name Dose Route Start Last Admin Trade Name Freq PRN Reason Stop Dose Admin Acetaminophen 1,000 mg in 100 mls @ 400 mls/hr 07/10/23 20:48 Acetaminophen IV 07/10/23 21:02 ONCE ONE Discontinued Medications Generic Name Dose Route Start Last Admin Trade Name Freq PRN Reason Stop Dose Admin Hydralazine HCl 10 mg 07/10/23 20:47 Hydralazine Hcl 20 Mg/Ml Sdv IVP 07/10/23 20:48 ONCE ONE Hydrochlorothiazide 25 mg 07/10/23 18:50 07/10/23 19:00 Hydrochlorothiazide 25 Mg Tablet PO 07/10/23 18:51 25 mg ONCE ONE Administration Labetalol HCl 20 mg 07/10/23 19:48 07/10/23 19:51 Labetalol Hcl 20 Mg/4 Ml Disp.Syrin IVP 07/10/23 19:49 20 mg ONCE ONE Administration Lisinopril 20 mg 07/10/23 18:50 07/10/23 19:00 Lisinopril 10 Mg Tablet PO 07/10/23 18:51 20 mg ONCE ONE Administration Vital Signs: Temp Pulse Resp BP Pulse Ox 07/10/23 18:34 98.2 F 101 H 20 192/103 H 98 MDM: patient is a 42 yo F here for presyncope, headache and elevated blood pressure Patient arrives afebrile with elevated blood pressure Patient alert and oriented x4 GCS 15 3+ labs and 3 + Images reviewed by me HTN refractory to home antihypertensive regimen Improved with labetalol transiently, hydralazine added CT head wnl This is similar to previous May 01 2023 visit for similar Patient denies drug or tobacco use Consults to Hospitalist Headache has not improved with lowering BP WDX: HTN emergency, headache, anemia, discomfort acute on chronic moderate complexity DDX: I considered SAH, pneumothorax, stemi but these were not found SDOH: Patient underinsured but does follow with PCP We discussed care plana nd she agrees to observation Patient stable MARIA DEL CARMEN Risk Score MARIA DEL CARMEN Risk Score: Risk Score Odds of by 30D 0 0.1 (0.1-0.2) 1 0.3 (0.2-0.3) 2 0.4 (0.3-0.5) 3 0.7 (0.6-0.9) 4 1.2 (1.0-1.5) 5 2.2 (1.9-2.6) 6 3.0 (2.5-3.6) 7 4.8 (3.8-6.1) Discharge Plan Discharge Patient Disposition: PLACED OBSERVATION Discharge Problem: Hypertensive emergency, Anemia, Discomfort, Headache Did you review [place] PAID INTERN for ALL controlled substances?: Not Applicable ED Provider: MAK JAIMES Condition: Fair Physician Progress Note: []
[2023-07-10] MEDS ORDERED: TRANDATE IVP ONE (19:48)
--- NOTE | 2023-07-10 20:21 | CT ---
EXAM: CT BRAIN WITHOUT CONTRAST HISTORY: Headache and elevated blood pressure TECHNIQUE: CT of the brain without intravenous contrast. FINDINGS: There is no acute hemorrhage midline shift or mass effect. No hydrocephalus or abnormal e xtra-axial fluid collection. No significant parenchymal attenuation abnormality. The bony cranium a ppears normal. There is a apical cyst of the right maxilla associated with the posterior molar. Soft tissues without significant abnormality. IMPRESSION: 1. No intracranial abnormality All CT scans are performed using dose optimization techniques as appropriate to the performed exam an d include at least one of the following: Automated exposure control, adjustment of the mA and/or kV according t o size, and the use of iterative reconstruction technique.
[2023-07-10] MEDS ORDERED: HYDRALAZINE HCL IVP ONE (20:47)
[2023-07-10] MEDS ORDERED: ACETAMINOPHEN 1,000 MG/100 ML BAG IV ONE (20:48)
[2023-07-10 20:54] LABS: AMPHETAMINE SCREEN,URINE NEGATIVE (NEGATIVE); BARBITURATE SCREEN,URINE NEGATIVE (NEGATIVE); BENZODIAZEPINES SCREEN,URINE NEGATIVE (NEGATIVE); CANNABINOID SCREEN,URINE NEGATIVE (NEGATIVE); COCAIN SCREEN,URINE NEGATIVE (NEGATIVE); METHADONE URINE SCREEN NEGATIVE (NEGATIVE); METHAMPHETAMINES SCREEN,URINE NEGATIVE (NEGATIVE); OPIATE SCREEN,URINE NEGATIVE (NEGATIVE); OXYCODONE URINE SCREEN NEGATIVE (NEGATIVE); PHENCYCLIDINE SCREEN,URINE NEGATIVE (NEGATIVE); PROPOXYPHENE URINE SCREEN NEGATIVE (NEGATIVE); TRICYCLIC ANTIDEPRESSANTS URIN NEGATIVE (NEGATIVE)
[2023-07-10] MEDS ORDERED: HYDRALAZINE HCL IVP PRN (21:12)
[2023-07-10 21:47] LABS: SARS COV-2 RNA RAPID NAAT NEGATIVE (NEGATIVE)
[2023-07-10 22:35] VITALS: BMI 48.4
[2023-07-11] MEDS: TYLENOL PO PRN ×2 (00:36→07:59)
[2023-07-11 06:06] LABS: BASOPHILS # (AUTO) 0.1 K/uL (0-0.2); BASOPHILS % (AUTO) 0.9 % (0.0-3.0); EOSINOPHILS # (AUTO) 0.2 K/ul (0.0-0.7); EOSINOPHILS % (AUTO) 2.1 % (0.0-7.0); HEMATOCRIT 29.2 % (37.0-47.0); HEMOGLOBIN 7.8 g/dl (12.0-16.0); IMMATURE GRANULOCYTE % (AUTO) 0.4 % (0.0-5.0); LYMPHOCYTES # (AUTO) 2.6 K/uL (0.60-3.4); LYMPHOCYTES % (AUTO) 32.3 (10.0-50.0); MEAN CORPUSCULAR HGB CONC 26.7 (31.8-35.4); MEAN CORPUSCULAR VOLUME 63.5 fl (81.0-99.0); MONOCYTES # (AUTO) 0.5 K/uL (0.4-2.0); MONOCYTES % (AUTO) 6.8 (0-10); NEUTROPHILS # (AUTO) 4.6 K/ul (2.0-6.9); NEUTROPHILS % (AUTO) 57.5 % (42.2-75.2); PLATELET COUNT 303 10^3/uL (140-440); RDW COEFFICIENT OF VARIATION 18.9 % (11.6-14.8); WHITE BLOOD COUNT 7.99 K/ul (4.6-10.2)
[2023-07-11 06:18] LABS: IRON 17.1 ug/dL (37-170)
[2023-07-11 06:21] LABS: ALANINE AMINOTRANSFERASE 18.8 U/L (0-35); ALBUMIN 4.06 g/dL (3.5-5.0); ALKALINE PHOSPHATASE 72.1 U/L (38-126); ASPARTATE AMINO TRANSFERASE 19.5 U/L (14-36); BILIRUBIN,TOTAL 0.34 mg/dL (0.2-1.3); BLOOD UREA NITROGEN 11.1 mg/dL (7-17); CALCIUM 9.46 mg/dL (8.4-10.2); CARBON DIOXIDE 25.5 mmol/L (22-30.0); CHLORIDE 99.2 mmol/L (98-107); CREATININE 0.56 mg/dL (0.60-1.30); GLUCOSE 199.7 mg/dL (74-106); POTASSIUM 3.52 mmol/L (3.5-5.1); SODIUM 133.4 mmol/L (134.5-145); TOTAL PROTEIN 7.12 g/dL (6.3-8.2)
[2023-07-11 06:56] LABS: ANISOCYTOSIS OCCASIONAL (NOT PRESENT); HYPOCHROMASIA 2+ (NOT PRESENT)
[2023-07-11] MEDS ORDERED: ZESTRIL PO SCH (09:00)
[2023-07-11] MEDS ORDERED: HYDROCHLOROTHIAZIDE PO SCH (09:00)
[2023-07-11] MEDS ORDERED: INJECTAFER 750 MG in SODIUM CHLORIDE 100ML 100 ML IV ONE (09:26)
[2023-07-11] MEDS ORDERED: TORADOL IVP ONE (09:36)
[2023-07-11] MEDS ORDERED: ZOFRAN 4 MG/2 ML IVP PRN (10:31)
[2023-07-11 11:46] VITALS: RESP 18
[2023-07-11 14:42] VITALS: BP 122/65; PULSE 83; TEMP 98.2
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
[2023-07-11 15:06] LABS: BASOPHILS # (AUTO) 0.1 K/uL (0-0.2); BASOPHILS % (AUTO) 0.8 % (0.0-3.0); EOSINOPHILS # (AUTO) 0.1 K/ul (0.0-0.7); EOSINOPHILS % (AUTO) 1.8 % (0.0-7.0); HEMATOCRIT 30.2 % (37.0-47.0); HEMOGLOBIN 8.2 g/dl (12.0-16.0); IMMATURE GRANULOCYTE % (AUTO) 0.3 % (0.0-5.0); LYMPHOCYTES # (AUTO) 2.1 K/uL (0.60-3.4); LYMPHOCYTES % (AUTO) 28.9 (10.0-50.0); MEAN CORPUSCULAR HEMOGLOBIN 17.4 pg (27.0-31.0); MEAN CORPUSCULAR HGB CONC 27.2 (31.8-35.4); MONOCYTES # (AUTO) 0.5 K/uL (0.4-2.0); MONOCYTES % (AUTO) 6.9 (0-10); NEUTROPHILS # (AUTO) 4.5 K/ul (2.0-6.9); NEUTROPHILS % (AUTO) 61.3 % (42.2-75.2); PLATELET COUNT 307 10^3/uL (140-440); RDW COEFFICIENT OF VARIATION 19.1 % (11.6-14.8); RED BLOOD COUNT 4.72 10^6/ul (4.20-5.40); WHITE BLOOD COUNT 7.26 K/ul (4.6-10.2)
== END 2023-07-11 16:10 | disposition home or self-care (01) ==
LOC: MEDSURG B 18:18 → ED 18:18 → MEDSURG B 22:22
PROVIDERS: ADMIT Hospitalist; ATTEND Nurse Practitioner Family
DX: R55 Syncope and collapse; D50.9 Iron deficiency anemia, unspecified; R51.9 Headache, unspecified; I16.1 Hypertensive emergency; Z79.899 Other long term (current) drug therapy; Z51.81 Encounter for therapeutic drug level monitoring; Z20.822 Contact with and (suspected) exposure to COVID-19; I10 Essential (primary) hypertension

== ENCOUNTER 2023-12-26 10:41 | Observation (INO) ==
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
[2023-12-26] MEDS: TRANDATE IVP ONE ×2 (11:23→13:27)
[2023-12-26 11:32] LABS: BASOPHILS # (AUTO) 0.1 K/uL (0-0.2); BASOPHILS % (AUTO) 0.6 % (0.0-3.0); EOSINOPHILS # (AUTO) 0.2 K/ul (0.0-0.7); EOSINOPHILS % (AUTO) 1.9 % (0.0-7.0); HEMATOCRIT 35.7 % (37.0-47.0); HEMOGLOBIN 10.8 g/dl (12.0-16.0); IMMATURE GRANULOCYTE % (AUTO) 0.2 % (0.0-5.0); LYMPHOCYTES # (AUTO) 2.4 K/uL (0.60-3.4); LYMPHOCYTES % (AUTO) 28.8 (10.0-50.0); MEAN CORPUSCULAR HEMOGLOBIN 23.4 pg (27.0-31.0); MEAN CORPUSCULAR HGB CONC 30.3 (31.8-35.4); MEAN CORPUSCULAR VOLUME 77.3 fl (81.0-99.0); MONOCYTES # (AUTO) 0.5 K/uL (0.4-2.0); MONOCYTES % (AUTO) 5.8 (0-10); NEUTROPHILS # (AUTO) 5.1 K/ul (2.0-6.9); NEUTROPHILS % (AUTO) 62.7 % (42.2-75.2); PLATELET COUNT 236 10^3/uL (140-440); RDW COEFFICIENT OF VARIATION 15.9 % (11.6-14.8); RED BLOOD COUNT 4.62 10^6/ul (4.20-5.40); WHITE BLOOD COUNT 8.22 K/ul (4.6-10.2)
[2023-12-26 11:45] LABS: ALANINE AMINOTRANSFERASE 29.8 U/L (0-35); ALBUMIN 4.06 g/dL (3.5-5.0); ALKALINE PHOSPHATASE 73.4 U/L (38-126); ASPARTATE AMINO TRANSFERASE 22.4 U/L (14-36); BILIRUBIN,TOTAL 0.48 mg/dL (0.2-1.3); BLOOD UREA NITROGEN 10.5 mg/dL (7-17); CALCIUM 9.58 mg/dL (8.4-10.2); CARBON DIOXIDE 27.3 mmol/L (22-30.0); CHLORIDE 101.3 mmol/L (98-107); CREATININE 0.56 mg/dL (0.60-1.30); GLUCOSE 221.5 mg/dL (74-106); POTASSIUM 4.02 mmol/L (3.5-5.1); SODIUM 133.8 mmol/L (134.5-145); TOTAL PROTEIN 7.13 g/dL (6.3-8.2)
[2023-12-26] MEDS: SODIUM CHLORIDE 500 ML IV ONE ×2 (11:59→13:19)
[2023-12-26 12:00] LABS: TROPONIN I < 0.012 ng/ml (0.0000-0.120)
[2023-12-26] MEDS: BENADRYL IVP STA (12:04)
[2023-12-26] MEDS: REGLAN IVP ONE (12:04)
[2023-12-26 12:06] LABS: BILIRUBIN,URINE Negative (NEGATIVE); CLARITY,URINE Clear (CLEAR); COLOR,URINE Yellow (YELLOW); GLUCOSE, URINE (UA) 1+ (NEGATIVE); KETONES,URINE Negative (NEGATIVE); LEUKOCYTE ESTERASE ,URINE Trace (NEGATIVE); NITRITE,URINE Positive (NEGATIVE); PH,URINE 6.5 (5-9); PROTEIN,URINE 2+ (NEGATIVE); URINE, BLOOD Trace-intact (NEGATIVE); UROBILINOGEN,URINE 0.2 (0.2)
[2023-12-26 12:07] LABS: SQUAMOUS EPITHELIAL CELL,UR NOT PRESENT (0-5)
[2023-12-26 12:08] LABS: BACTERIA,URINE TRACE (NOT PRESENT)
[2023-12-26 12:21] LABS: SARS COV-2 RNA RAPID NAAT NEGATIVE (NEGATIVE)
[2023-12-26] MEDS: TORADOL IVP ONE (12:40)
--- NOTE | 2023-12-26 12:52 | CT ---
EXAM: CT HEAD WITHOUT CONTRAST. HISTORY: Headache. Elevated blood pressure. COMPARISON: 07/10/2023. TECHNIQUE: Multiple axial images of the brain were obtained from the skull base through the vertex w ithout intravenous contrast. Multiplanar reformats were provided. FINDINGS: There is no intracranial hemorrhage or extraaxial collection. The lizama-white differentiat ion is maintained without evidence for acute large vascular territory infarction. The cortical sulci and basal cisterns are well visualized. There is no hydrocephalus, mass effect, or midline shift. The paranasal sinuses and mastoid air cells are clear. The calvarium is intact. The Since the prior study, there has been no significant interval change. IMPRESSION: No acute intracranial abnormality. All CT scans are performed using dose optimization techniques as appropriate to the performed exam an d include at least one of the following: Automated exposure control, adjustment of the mA and/or kV according t o size, and the use of iterative reconstruction technique.
--- NOTE | 2023-12-26 13:10 | DI ---
EXAM: FRONTAL AND LATERAL CHEST RADIOGRAPH(S). 2 VIEWS. History:Hypertensive emergency Comparison: 09/05/2023 Findings: Heart size normal. No pleural effusion or pneumothorax. No focal airspace opacification. Impression: No acute findings
[2023-12-26] MEDS: ACETAMINOPHEN 1,000 MG/100 ML BAG IV ONE (13:27)
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
[2023-12-26] MEDS ORDERED: TYLENOL PO PRN (13:58)
[2023-12-26] MEDS ORDERED: ZOFRAN 4 MG/2 ML IVP PRN (13:58)
[2023-12-26] MEDS: MACROBID PO ONE (14:01)
[2023-12-26] MEDS: ROCEPHIN 1 GM/50 ML D5W 1 GM/50 ML BAG IV SCH (14:36)
[2023-12-26 14:53] VITALS: BMI 48.2
[2023-12-26] MEDS: NORCO 7.5-325 PO PRN ×2 (16:42→21:36)
[2023-12-26] MEDS: HYDROCHLOROTHIAZIDE PO STA (17:33)
[2023-12-26] MEDS: ZESTRIL PO SCH (21:07)
[2023-12-26] MEDS: NEURONTIN PO SCH (21:07)
[2023-12-26] MEDS: FLEXERIL PO SCH (21:07)
[2023-12-26] MEDS: FERROUS SULFATE PO SCH (21:07)
[2023-12-26] MEDS: HYDROCHLOROTHIAZIDE PO SCH (21:08)
[2023-12-26] MEDS: NORVASC PO SCH (21:37)
[2023-12-27 05:41] LABS: BASOPHILS % (AUTO) 0.5 % (0.0-3.0); EOSINOPHILS # (AUTO) 0.2 K/ul (0.0-0.7); EOSINOPHILS % (AUTO) 1.9 % (0.0-7.0); HEMATOCRIT 34.7 % (37.0-47.0); HEMOGLOBIN 10.6 g/dl (12.0-16.0); IMMATURE GRANULOCYTE % (AUTO) 0.4 % (0.0-5.0); LYMPHOCYTES # (AUTO) 2.7 K/uL (0.60-3.4); LYMPHOCYTES % (AUTO) 31.3 (10.0-50.0); MEAN CORPUSCULAR HEMOGLOBIN 23.8 pg (27.0-31.0); MEAN CORPUSCULAR HGB CONC 30.5 (31.8-35.4); MEAN CORPUSCULAR VOLUME 77.8 fl (81.0-99.0); MONOCYTES # (AUTO) 0.5 K/uL (0.4-2.0); NEUTROPHILS # (AUTO) 5.1 K/ul (2.0-6.9); NEUTROPHILS % (AUTO) 59.9 % (42.2-75.2); PLATELET COUNT 250 10^3/uL (140-440); RED BLOOD COUNT 4.46 10^6/ul (4.20-5.40); WHITE BLOOD COUNT 8.47 K/ul (4.6-10.2)
[2023-12-27 05:56] LABS: ALANINE AMINOTRANSFERASE 29.6 U/L (0-35); ALBUMIN 3.97 g/dL (3.5-5.0); ALKALINE PHOSPHATASE 74.8 U/L (38-126); ASPARTATE AMINO TRANSFERASE 24.9 U/L (14-36); BILIRUBIN,TOTAL 0.39 mg/dL (0.2-1.3); BLOOD UREA NITROGEN 13.4 mg/dL (7-17); CALCIUM 9.63 mg/dL (8.4-10.2); CHLORIDE 97.5 mmol/L (98-107); CREATININE 0.6 mg/dL (0.60-1.30); GLUCOSE 302.2 mg/dL (74-106); POTASSIUM 3.59 mmol/L (3.5-5.1); SODIUM 131.9 mmol/L (134.5-145)
[2023-12-27] MEDS: HYDRALAZINE HCL IVP PRN (06:37)
[2023-12-27] MEDS: ZESTRIL PO SCH ×2 (08:02→21:32)
[2023-12-27] MEDS: COZAAR PO ONE (10:38)
[2023-12-27 11:22] LABS: IRON 48.6 ug/dL (37-170)
[2023-12-27 12:44] LABS: AMPHETAMINE SCREEN,URINE NEGATIVE (NEGATIVE); BARBITURATE SCREEN,URINE NEGATIVE (NEGATIVE); BENZODIAZEPINES SCREEN,URINE NEGATIVE (NEGATIVE); CANNABINOID SCREEN,URINE POSITIVE (NEGATIVE); COCAIN SCREEN,URINE NEGATIVE (NEGATIVE); METHADONE URINE SCREEN NEGATIVE (NEGATIVE); METHAMPHETAMINES SCREEN,URINE NEGATIVE (NEGATIVE); OPIATE SCREEN,URINE POSITIVE (NEGATIVE); OXYCODONE URINE SCREEN POSITIVE (NEGATIVE); PHENCYCLIDINE SCREEN,URINE NEGATIVE (NEGATIVE); TRICYCLIC ANTIDEPRESSANTS URIN NEGATIVE (NEGATIVE)
[2023-12-27 13:15] LABS: CHOLESTEROL 244.7 mg/dL (0-200); HDL CHOLESTEROL 45.5 mg/dL (35-80); TRIGLYCERIDES 417.1 mg/dL (0-150)
--- NOTE | 2023-12-27 13:41 | PCM.PROG ---
Date/Time Seen Date Seen by Provider: 12/27/23 Time Seen by Provider: 08:30 Provider Provider: EDMOND PARIS PA-C, [facility] Chief Complaint Chief Complaint: HYPERTENSIVE EMERGENCY, HEADACHE Subjective Subjective: Continued headache down into neck. BP still high at this time. States she has been taking medications as prescribed, however patient has not seen provider for >1 year and this provider prescribed current HTN med regimen in June with no refills ordered. Objective Appearance: Positive No Apparent Distress and Alert and Oriented x3 Chest/Lungs: Positive Symmetrical With Equal Breath Sounds, Clear to Auscultation Bilaterally and Good Air Movement all 4 Lung Torres Heart: Positive RRR and Pulses Normal GI/: Positive Soft, Nontender, Bowel Sounds Normal and No Distention Musculoskeletal: Positive Not Examined Neurological: Positive Sensation Intact, Motor intact, Reflexes Intact, Alert and Oriented Vital Signs Vital Signs: Vital Signs: Last 24 Hours 12/26/23 13:45 12/26/23 14:28 12/26/23 14:28 Temperature 98.2 F Temperature Source Oral Pulse Rate 84 Respiratory Rate 16 16 Blood Pressure 175/83 H Blood Pressure Mean Blood Pressure Left Arm 184/110 Blood Pressure Right Arm 193/106 Blood Pressure Location Blood Pressure Position Sitting O2 Sat by Pulse Oximetry 96 Oxygen Delivery Method Room Air Room Air Height 5 ft 1 in Weight 255 lb 8 oz Telemetry Type Telemetry Monitoring Telemetry Heart Rate EKG [place] Interval EKG QRS Interval Telemetry Strip Reading 12/26/23 14:33 12/26/23 15:00 12/26/23 15:55 Temperature Temperature Source Pulse Rate Respiratory Rate Blood Pressure Blood Pressure Mean Blood Pressure Left Arm Blood Pressure Right Arm Blood Pressure Location Blood Pressure Position O2 Sat by Pulse Oximetry Oxygen Delivery Method Room Air Room Air Height Weight Telemetry Type Remote Telemetry Telemetry Monitoring Started Telemetry Heart Rate 81 EKG [place] Interval 0.14 EKG QRS Interval 0.06 Telemetry Strip Reading SR 12/26/23 16:40 12/26/23 16:45 12/26/23 17:53 Temperature 97.4 F L Temperature Source Temporal Artery Scan Pulse Rate 93 Respiratory Rate 18 Blood Pressure 170/88 H 180/84 H Blood Pressure Mean 115 116 Blood Pressure Left Arm Blood Pressure Right Arm Blood Pressure Location Right Arm Right Arm Blood Pressure Position Sitting Sitting O2 Sat by Pulse Oximetry 96 Oxygen Delivery Method Room Air Room Air Room Air Height Weight Telemetry Type Telemetry Monitoring Telemetry Heart Rate EKG [place] Interval EKG QRS Interval Telemetry Strip Reading 12/26/23 17:54 12/26/23 19:00 12/26/23 19:00 Temperature Temperature Source Pulse Rate Respiratory Rate Blood Pressure Blood Pressure Mean Blood Pressure Left Arm Blood Pressure Right Arm Blood Pressure Location Blood Pressure Position O2 Sat by Pulse Oximetry Oxygen Delivery Method Room Air Room Air Height Weight Telemetry Type Bedside Monitor Telemetry Monitoring Continues Telemetry Heart Rate 90 EKG [place] Interval 0.13 EKG QRS Interval 0.05 L Telemetry Strip Reading sr 12/26/23 20:00 12/26/23 20:00 12/26/23 20:43 Temperature 97.8 F Temperature Source Temporal Artery Scan Pulse Rate 85 Respiratory Rate 22 H Blood Pressure 192/89 H Blood Pressure Mean 123 Blood Pressure Left Arm Blood Pressure Right Arm Blood Pressure Location Left Arm Blood Pressure Position Supine O2 Sat by Pulse Oximetry 96 Oxygen Delivery Method Room Air Room Air Room Air Height Weight Telemetry Type Telemetry Monitoring Telemetry Heart Rate EKG [place] Interval EKG QRS Interval Telemetry Strip Reading 12/26/23 21:00 12/26/23 22:00 12/26/23 23:00 Temperature Temperature Source Pulse Rate Respiratory Rate Blood Pressure Blood Pressure Mean Blood Pressure Left Arm Blood Pressure Right Arm Blood Pressure Location Blood Pressure Position O2 Sat by Pulse Oximetry Oxygen Delivery Method Room Air Room Air Room Air Height Weight Telemetry Type Telemetry Monitoring Telemetry Heart Rate EKG [place] Interval EKG QRS Interval Telemetry Strip Reading 12/27/23 00:00 12/27/23 01:00 12/27/23 01:00 Temperature Temperature Source Pulse Rate Respiratory Rate Blood Pressure Blood Pressure Mean Blood Pressure Left Arm Blood Pressure Right Arm Blood Pressure Location Blood Pressure Position O2 Sat by Pulse Oximetry Oxygen Delivery Method Room Air Room Air Height Weight Telemetry Type Remote Telemetry Telemetry Monitoring Continues Telemetry Heart Rate 93 EKG [place] Interval 0.16 EKG QRS Interval 0.07 Telemetry Strip Reading sr 12/27/23 02:00 12/27/23 02:00 12/27/23 03:00 Temperature 98.1 F Temperature Source Temporal Artery Scan Pulse Rate 86 Respiratory Rate 21 H Blood Pressure 180/79 H Blood Pressure Mean 112 Blood Pressure Left Arm Blood Pressure Right Arm Blood Pressure Location Left Arm Blood Pressure Position Supine O2 Sat by Pulse Oximetry 97 Oxygen Delivery Method Room Air Room Air Room Air Height Weight Telemetry Type Telemetry Monitoring Telemetry Heart Rate EKG [place] Interval EKG QRS Interval Telemetry Strip Reading 12/27/23 04:00 12/27/23 05:00 12/27/23 05:46 Temperature Temperature Source Pulse Rate Respiratory Rate Blood Pressure Blood Pressure Mean Blood Pressure Left Arm Blood Pressure Right Arm Blood Pressure Location Blood Pressure Position O2 Sat by Pulse Oximetry Oxygen Delivery Method Room Air Room Air Room Air Height Weight Telemetry Type Telemetry Monitoring Telemetry Heart Rate EKG [place] Interval EKG QRS Interval Telemetry Strip Reading 12/27/23 05:59 12/27/23 07:00 12/27/23 07:00 Temperature 97.9 F Temperature Source Temporal Artery Scan Pulse Rate 93 Respiratory Rate 22 H Blood Pressure 195/99 H Blood Pressure Mean 131 Blood Pressure Left Arm Blood Pressure Right Arm Blood Pressure Location Left Arm Blood Pressure Position Supine O2 Sat by Pulse Oximetry 96 Oxygen Delivery Method Room Air Room Air Height Weight Telemetry Type Remote Telemetry Telemetry Monitoring Continues Telemetry Heart Rate 106 H EKG [place] Interval 0.14 EKG QRS Interval 0.[address] 12/27/23 08:00 12/27/23 08:00 12/27/23 08:20 Temperature Temperature Source Pulse Rate 110 H Respiratory Rate Blood Pressure 194/111 H Blood Pressure Mean 138 Blood Pressure Left Arm Blood Pressure Right Arm Blood Pressure Location Right Arm Blood Pressure Position Sitting O2 Sat by Pulse Oximetry Oxygen Delivery Method Room Air Room Air Room Air Height Weight Telemetry Type Telemetry Monitoring Telemetry Heart Rate EKG [place] Interval EKG QRS Interval Telemetry Strip Reading 12/27/23 08:50 12/27/23 09:00 12/27/23 10:00 Temperature Temperature Source Pulse Rate Respiratory Rate Blood Pressure 200/109 H Blood Pressure Mean 139 Blood Pressure Left Arm Blood Pressure Right Arm Blood Pressure Location Right Arm Blood Pressure Position Sitting O2 Sat by Pulse Oximetry Oxygen Delivery Method Room Air Room Air Room Air Height Weight Telemetry Type Telemetry Monitoring Telemetry Heart Rate EKG [place] Interval EKG QRS Interval Telemetry Strip Reading 12/27/23 10:00 12/27/23 11:00 12/27/23 12:00 Temperature 97.4 F L Temperature Source Temporal Artery Scan Pulse Rate 105 H 103 H Respiratory Rate 16 Blood Pressure 182/100 H 174/102 H Blood Pressure Mean 127 126 Blood Pressure Left Arm Blood Pressure Right Arm Blood Pressure Location Right Arm Blood Pressure Position O2 Sat by Pulse Oximetry 96 Oxygen Delivery Method Room Air Room Air Room Air Height Weight Telemetry Type Telemetry Monitoring Telemetry Heart Rate EKG [place] Interval EKG QRS Interval Telemetry Strip Reading 12/27/23 12:00 Temperature Temperature Source Pulse Rate Respiratory Rate Blood Pressure Blood Pressure Mean Blood Pressure Left Arm Blood Pressure Right Arm Blood Pressure Location Blood Pressure Position O2 Sat by Pulse Oximetry Oxygen Delivery Method Room Air Height Weight Telemetry Type Telemetry Monitoring Telemetry Heart Rate EKG [place] Interval EKG QRS Interval Telemetry Strip Reading Lab Results Lab Results: Lab Results: Last 24 Hours 12/27/23 12/27/23 12:17 05:20 WBC 8.47 RBC 4.46 Hgb 10.6 L Hct 34.7 L MCV 77.8 L MCH 23.8 L MCHC 30.5 L RDW Coeff of Kathrine 16.0 H Plt Count 250 Immature Gran % (Auto) 0.4 Neut % (Auto) 59.9 Lymph % (Auto) 31.3 [place] % (Auto) 6.0 Eos % (Auto) 1.9 Baso % (Auto) 0.5 Neut # (Auto) 5.1 Lymph # (Auto) 2.7 [place] # (Auto) 0.5 Eos # (Auto) 0.2 Baso # (Auto) 0.0 Immature Gran # (Auto) 0.0 Sodium 131.9 L Potassium 3.59 Chloride 97.5 L Carbon Dioxide 28.0 Anion Gap 9.99 BUN 13.4 Creatinine 0.60 Estimated GFR (MDRD) 109.00 BUN/Creatinine Ratio 22.33 Glucose 302.2 H D Calcium 9.63 Iron 48.6 TIBC 365 % Saturation 13 Ferritin 6.19 L Total Bilirubin 0.39 AST 24.9 ALT 29.6 Alkaline Phosphatase 74.8 Total Protein 7.00 Albumin 3.97 Globulin 3.03 Albumin/Globulin Ratio 1.31 Urine Opiates Screen Positive H Ur Oxycodone Screen Positive H Urine Methadone Screen Negative Ur Barbiturates Screen Negative U Tricyclic Antidepress Negative Ur Phencyclidine Scrn Negative Ur Amphetamine Screen Negative U Methamphetamines Scrn Negative U Benzodiazepines Scrn Negative Urine Cocaine Screen Negative U Cannabinoids Screen Positive H Additional Comments Additional Comments: I have independently reviewed and interpreted the labs/EKGs/imaging ordered during this hospital stay. I have reviewed outside records that are available in our EMR that pertain to medical stay including imaging/notes/labs from previous visits. Active Medications Active Medications: Medications Generic Name Dose Route Start Last Admin Trade Name Freq PRN Reason Stop Dose Admin Acetaminophen 650 mg 12/26/23 13:58 Acetaminophen 325 Mg Tablet PO Q4H PRN Mild Pain Hydrocodone Bitart/Acetaminophen 1 tab 12/26/23 20:48 12/27/23 08:01 Hydrocodone Bit/Acetaminophen 7.5/325 Mg Tablet PO 1 tab Q8H PRN Administration Mild Pain Amlodipine Besylate 5 mg 12/26/23 21:15 12/27/23 08:02 Amlodipine Besylate 5 Mg Tablet PO 5 mg DAILY SARA Administration Cyclobenzaprine HCl 10 mg 12/26/23 21:00 12/26/23 21:07 Cyclobenzaprine Hcl 10 Mg Tablet PO 10 mg BEDTIME SARA Administration Ferrous Sulfate 324 mg 12/26/23 21:00 12/27/23 08:01 Ferrous Sulfate 324 Mg Tablet.Dr PO 324 mg TID SARA Administration Gabapentin 600 mg 12/26/23 21:00 12/26/23 21:07 Gabapentin 300 Mg Capsule PO 600 mg BEDTIME SARA Administration Hydralazine HCl 10 mg 12/26/23 13:58 12/27/23 06:37 Hydralazine Hcl 20 Mg/Ml Sdv IVP 10 mg Q6H PRN Administration Hypertension Hydrochlorothiazide 25 mg 12/26/23 21:00 12/26/23 21:08 Hydrochlorothiazide 25 Mg Tablet PO 25 mg BEDTIME SARA Administration CEFTRIAXONE/D5W 1 GM PREMIX 1 gm in 50 mls @ 100 mls/hr 12/26/23 14:00 12/27/23 08:04 Rocephin 1 Gm/50 Ml D5w IV 12/29/23 13:59 100 mls/hr DAILY SARA Administration Lisinopril 40 mg 12/27/23 09:00 12/27/23 08:02 Lisinopril 40 Mg Tablet PO 40 mg DAILY SARA Administration Metoprolol Tartrate 5 mg 12/27/23 13:31 Metoprolol Tartrate 5 Mg/5 Ml Vial IVP 12/27/23 13:32 ONCE ONE Ondansetron HCl 4 mg 12/26/23 13:58 Ondansetron Hcl/Pf 4 Mg/2 Ml Sdv IVP Q6H PRN Nausea / Vomiting Plan Plan: 1. Hypertensive urgency - Failed two IV meds in ER. Hydralazine 10 mg IVP q6hrs prn. Yesterday additional dose of HCTZ given, minimal response with BP noted. Amlodipine added on for this am. No response noted. Losartan administered and minimal response noted. If unable to achieve desired effect will start cardene gtt. Checking tsh, lipid panel, hemoglobin A1c due to noncompliance. Drug screen completed showing opiates and THC. Echo tomorrow. 2. Hypertension, chronic - Noncompliant. plan as above 3. Suspect UTI - Rocephin ordered, culture - no growth, symptoms present continue to treat Review Statement Review Statement: I have personally discussed and reviewed the patient's visit/currently labs/imaging/decision making with Dr. Gibson, my supervising attending. Greater that 50 minutes spent with patient, 50% of the time spent with this patient was devoted to counseling and coordination of care. Additional Comments Additional Comments: 1400: Discussed results of labs with patient. Has not seen PCP since January 2023. Pain management provider has been refilling her BP medication. Agreeable to be d/c with diabetic medications and started cholesterol medications while in hospital. Discussed need for echo to ensure no underlying cause of hypertension. Patient amendable to plan. Would like establishment with new PCP. Preferably Dr. Ortiz if takes her insurance.
[2023-12-27] MEDS: LOPRESSOR IVP ONE (14:02)
[2023-12-27] MEDS: LASIX IVP ONE (14:33)
[2023-12-27] MEDS: TRANDATE IVP ONE (15:28)
[2023-12-27] MEDS: PROCARDIA XL PO SCH (15:30)
[2023-12-27] MEDS: HUMALOG SUBCUT PRN (17:05)
[2023-12-27] MEDS: LIPITOR PO SCH (21:31)
[2023-12-27] MEDS: BENADRYL IVP STA (22:26)
[2023-12-28 05:22] LABS: BASOPHILS # (AUTO) 0.1 K/uL (0-0.2); BASOPHILS % (AUTO) 0.6 % (0.0-3.0); EOSINOPHILS # (AUTO) 0.2 K/ul (0.0-0.7); EOSINOPHILS % (AUTO) 1.7 % (0.0-7.0); HEMOGLOBIN 11.8 g/dl (12.0-16.0); IMMATURE GRANULOCYTE % (AUTO) 0.4 % (0.0-5.0); LYMPHOCYTES # (AUTO) 3.1 K/uL (0.60-3.4); LYMPHOCYTES % (AUTO) 30.6 (10.0-50.0); MEAN CORPUSCULAR HEMOGLOBIN 23.4 pg (27.0-31.0); MEAN CORPUSCULAR HGB CONC 30.3 (31.8-35.4); MEAN CORPUSCULAR VOLUME 77.4 fl (81.0-99.0); MONOCYTES # (AUTO) 0.7 K/uL (0.4-2.0); MONOCYTES % (AUTO) 6.6 (0-10); NEUTROPHILS % (AUTO) 60.1 % (42.2-75.2); PLATELET COUNT 259 10^3/uL (140-440); RDW COEFFICIENT OF VARIATION 16.3 % (11.6-14.8); RED BLOOD COUNT 5.04 10^6/ul (4.20-5.40); WHITE BLOOD COUNT 9.99 K/ul (4.6-10.2)
[2023-12-28 05:36] LABS: ALANINE AMINOTRANSFERASE 27.3 U/L (0-35); ALBUMIN 4.14 g/dL (3.5-5.0); ALKALINE PHOSPHATASE 71.7 U/L (38-126); ASPARTATE AMINO TRANSFERASE 23.1 U/L (14-36); BILIRUBIN,TOTAL 0.48 mg/dL (0.2-1.3); BLOOD UREA NITROGEN 17.9 mg/dL (7-17); CALCIUM 10.58 mg/dL (8.4-10.2); CARBON DIOXIDE 26.9 mmol/L (22-30.0); CHLORIDE 97.5 mmol/L (98-107); CREATININE 0.65 mg/dL (0.60-1.30); GLUCOSE 253.2 mg/dL (74-106); POTASSIUM 3.98 mmol/L (3.5-5.1); SODIUM 131.7 mmol/L (134.5-145); TOTAL PROTEIN 7.44 g/dL (6.3-8.2)
[2023-12-28] MEDS: BENADRYL PO ONE (06:14)
[2023-12-28 09:21] VITALS: RESP 16
[2023-12-28 10:20] VITALS: BP 150/98; PULSE 102; TEMP 97.6
--- NOTE | 2023-12-28 10:34 | DCSUM ---
Admission Date Admission Date: 12/26/23 Discharge Date Discharge Date: 12/28/23 Admission Diagnosis Admission Diagnosis: 1. Hypertensive urgency 2. Hypertension, chronic 3. Suspect UTI Discharge Diagnosis Discharge Diagnosis: 1. Hypertensive urgency, resolved 2. Hypertension, chronic 3. Suspect UTI - ruled out 4. Hyperlipidemia, new diagnosis 5. DMT2, new diagnosis Hospital Provider Hospital Provider: EDMOND PARIS PA-C, [facility] Primary Care Physician Primary Care Physician: ASTRID LOPEZ APRN Summary of History and Physical Summary of History and Physical: Patient is a 43 year old female with pmhx of hypertension who presented for headache x2 days. She states it is worse than usual. She has trouble with her BP running high. She tends to take an extra blood pressure pill when she can tell it is high, usually a headache. She has photosensitivity. She denies n/v. No smoking. No significant stress. No significant NSAID use. She has tried cutting down on caffeine in last few days. In ER BP was >230 systolic initially. Despite two doses of labetalol 20 mg IVP she remained elevated at 197/100. CT head neg. Covid neg. Will admit to [facility] obs. Hospital Course Subjective: Patient was treated with IV labetalol and hydralazine. Pt continued on her lisinopril and hctz. Nifedipine PO given. Did not increase HCTZ as her sodium is on low end of normal already. BP improved on date of discharge. Discussed it can take some time for this medication to have max effect. Also discussed lisinopril 40 mg bid is not a typical dose and 40 mg daily is more appropriate. Her a1c was 9.8. Will start on metformin 500 mg bid to hopefully avoid diarrhea, will need titrated up outpatient and likely additional agents. Cholesterol and trigs elevated as well. Started patient on atorvastatin. She requested a new pcp, although she had not been to hers in about a year. She was set up with new pcp and encouraged close follow up. Outpatient echo recommended due to longstanding hypertension. Red flags on when to return discussed. Of note urine culture showed mixed growth. Appearance: Pleasant, No Apparent Distress and Alert HEENT: MMM CVS: No Murmur Abdomen: Soft, Non-Tender and No Distention Respiratory: No Dyspnea Extremities: No Edema Vital Signs: Most Recent Vital Signs Temperature 97.6 F 12/28/23 10:00 Temperature Source Temporal Artery Scan 12/28/23 10:00 Temperature Source Oral 12/26/23 10:45 Pulse Rate 102 H 12/28/23 10:00 Respiratory Rate 16 12/28/23 10:00 Blood Pressure 150/98 H 12/28/23 10:00 Blood Pressure Mean 115 12/28/23 10:00 Blood Pressure Left Arm 184/110 12/26/23 14:28 Blood Pressure Right Arm 193/106 12/26/23 14:28 Blood Pressure Location Left Radial Artery 12/28/23 10:00 Blood Pressure Position Sitting 12/28/23 10:00 O2 Sat by Pulse Oximetry 95 12/28/23 10:00 Oxygen Delivery Method Room Air 12/28/23 10:00 Height 5 ft 1 in 12/26/23 14:28 Weight 255 lb 8 oz 12/26/23 14:28 Telemetry Type Remote Telemetry 12/28/23 07:00 Telemetry Monitoring Continues 12/28/23 07:00 Telemetry Heart Rate 105 H 12/28/23 07:00 EKG [place] Interval 0.16 12/28/23 07:00 EKG QRS Interval 0.08 12/28/23 07:00 Telemetry Strip Reading SINUS TACH 12/28/23 07:00 Imaging: EXAM: CT HEAD WITHOUT CONTRAST. HISTORY: Headache. Elevated blood pressure. COMPARISON: 07/10/2023. TECHNIQUE: Multiple axial images of the brain were obtained from the skull base through the vertex without intravenous contrast. Multiplanar reformats were provided. FINDINGS: There is no intracranial hemorrhage or extraaxial collection. The lizama-white differentiation is maintained without evidence for acute large vascular territory infarction. The cortical sulci and basal cisterns are well visualized. There is no hydrocephalus, mass effect, or midline shift. The paranasal sinuses and mastoid air cells are clear. The calvarium is intact. The Since the prior study, there has been no significant interval change. IMPRESSION: No acute intracranial abnormality. EXAM: FRONTAL AND LATERAL CHEST RADIOGRAPH(S). 2 VIEWS. History:Hypertensive emergency Comparison: 09/05/2023 Findings: Heart size normal. No pleural effusion or pneumothorax. No focal airspace opacification. Impression: No acute findings Lab Results Last 24 Hours: 12/28/23 12/27/23 12/27/23 05:10 12:17 05:20 WBC 9.99 RBC 5.04 Hgb 11.8 L Hct 39.0 MCV 77.4 L MCH 23.4 L MCHC 30.3 L RDW Coeff of Kathrine 16.3 H Plt Count 259 Immature Gran % (Auto) 0.4 Neut % (Auto) 60.1 Lymph % (Auto) 30.6 [place] % (Auto) 6.6 Eos % (Auto) 1.7 Baso % (Auto) 0.6 Neut # (Auto) 6.0 Lymph # (Auto) 3.1 [place] # (Auto) 0.7 Eos # (Auto) 0.2 Baso # (Auto) 0.1 Immature Gran # (Auto) 0.0 Sodium 131.7 L Potassium 3.98 Chloride 97.5 L Carbon Dioxide 26.9 Anion Gap 11.28 BUN 17.9 H Creatinine 0.65 Estimated GFR (MDRD) 99.00 BUN/Creatinine Ratio 27.53 Glucose 253.2 H Hemoglobin A1c 9.58 H D Calcium 10.58 H Iron 48.6 TIBC 365 % Saturation 13 Ferritin 6.19 L Total Bilirubin 0.48 AST 23.1 ALT 27.3 Alkaline Phosphatase 71.7 Total Protein 7.44 Albumin 4.14 Globulin 3.30 Albumin/Globulin Ratio 1.25 Triglycerides 417.1 H Cholesterol 244.7 H LDL Cholesterol, Calc VLDL Cholesterol HDL Cholesterol 45.5 Cholesterol/HDL Ratio 5.4 TSH 2.860 Urine Opiates Screen Positive H Ur Oxycodone Screen Positive H Urine Methadone Screen Negative Ur Barbiturates Screen Negative U Tricyclic Antidepress Negative Ur Phencyclidine Scrn Negative Ur Amphetamine Screen Negative U Methamphetamines Scrn Negative U Benzodiazepines Scrn Negative Urine Cocaine Screen Negative U Cannabinoids Screen Positive H Discharge Instructions Discharge Planning: Discharge Planning > [address] Doris Gibson. Discharge Medications: Medications at Discharge (Home Meds & RX) Discharge Plan Discharge Discharge Orders: Discharge Patient (ONCE); Ordered 12/28/23 Ordered By: EDMOND PARIS Activity Restrictions/Additional Instructions: DISCHARGE TO HOME F/U WITH PCP SCHEDULED LIMIT SODIUM, NSAIDS, CAFFEINE TO HELP WITH BLOOD PRESSURE CONSIDER OUTPATIENT ECHO PHARMACY: CAILIN LISINOPRIL DOSE CHANGED TO 40 MG ONCE DAILY DIET: DIABETIC DX: HYPERTENSION, HYPERLIPIDEMIA, DIABETES Instructions: Diabetes and Nutrition (GEN), Type 2 Diabetes Management for Adults (ED) Patient Disposition: HOME SELF-CARE Prescriptions: New nifedipine 60 mg tablet extended release 60 mg PO DAILY Qty: 30 0RF metformin 500 mg tablet 500 mg PO BID Qty: 60 0RF atorvastatin 40 mg tablet 40 mg PO DAILY Qty: 30 0RF Continued hydrochlorothiazide 25 mg tablet 25 mg PO DAILY Qty: 30 0RF cyclobenzaprine 10 mg tablet 10 mg PO BEDTIME Patient Comments: TAKE 1 TABLET BY MOUTH EVERY NIGHT AT BEDTIME ferrous sulfate 325 mg (65 mg iron) tablet 325 mg PO TID Qty: 90 0RF gabapentin 600 mg tablet 600 mg PO QDAY hydrocodone-acetaminophen 7.5-325 mg tablet 0.5 tab PO Q8H PRN (Reason: Pain) Changed lisinopril 40 mg Tablet 40 mg PO DAILY Qty: 60 0RF Did you review [place] [employer] for ALL controlled substances?: Yes Discussed opioids are addictive and Narcan is available by prescription or from pharmacy.: No Condition: Good Referrals: SANTI VINSON [REFERRING] - 01/13/24 1:30 pm
== END 2023-12-28 11:15 | disposition home or self-care (01) ==
LOC: ED 10:41 → MEDSURG B 10:41
PROVIDERS: ADMIT Hospitalist; ATTEND Physician Assistant
DX: I10 Essential (primary) hypertension; I16.0 Hypertensive urgency; E78.5 Hyperlipidemia, unspecified; Z20.822 Contact with and (suspected) exposure to COVID-19; R51.9 Headache, unspecified; Z91.199 Patient's noncompliance with other medical treatment and regimen due to unspecified reason; N39.0 Urinary tract infection, site not specified; Z51.81 Encounter for therapeutic drug level monitoring; E11.65 Type 2 diabetes mellitus with hyperglycemia; Z79.899 Other long term (current) drug therapy